=== PATIENT | male | born 1985 | race African-American/Black ===

== ENCOUNTER 2023-05-18 11:11 | Inpatient (IN) | payer OTHER ==
[2023-05-18 11:52] VITALS: BMI 18.4
[2023-05-18] MEDS ORDERED: BISMUTH SUBSALICYLATE 262 MG/15 ML BTL PO PRN (12:19)
[2023-05-18] MEDS ORDERED: guaiFENesin 600 MG TABLET.ER (FP) PO PRN (12:19)
[2023-05-18] MEDS ORDERED: ACETAMINOPHEN 325 MG TABLET (FP) PO PRN (12:19)
[2023-05-18] MEDS ORDERED: BENZOCAINE/MENTHOL (CHLORASEPTIC ) LOZENGE MM PRN (12:19)
[2023-05-18] MEDS ORDERED: MAGNESIUM HYDROX 2400MG/30ML ORAL SUSPENSION 30 ML CUP PO PRN (12:19)
[2023-05-18] MEDS ORDERED: MAG HYDROX/AL HYDROX/SIMETH 30 ML UNIT-DOSE CUP PO PRN (12:19)
[2023-05-18] MEDS ORDERED: METHOCARBAMOL 500 MG TABLET PO PRN (12:19)
[2023-05-18] MEDS ORDERED: POLYETHYLENE GLYCOL (HEALTHYLAX) 3350 17 GM PACKET PO PRN (12:19)
[2023-05-18] MEDS ORDERED: BENZONATATE 200 MG CAPSULE PO PRN (12:19)
[2023-05-18] MEDS ORDERED: ONDANSETRON *ODT* 4 MG TABLET SL PRN (12:19)
[2023-05-18] MEDS ORDERED: IBUPROFEN 600 MG TABLET (FP) PO PRN (12:19)
[2023-05-18] MEDS ORDERED: LOPERAMIDE HCL 2 MG CAPSULE PO PRN (12:19)
[2023-05-18] MEDS ORDERED: P-EPHED 60MG/TRIPROLIDI 2.5MG TABLET PO PRN (12:19)
[2023-05-18] MEDS ORDERED: DICYCLOMINE HCL 10 MG CAPSULE PO PRN (12:19)
[2023-05-18] MEDS ORDERED: IBUPROFEN 400 MG TABLET (FP) PO PRN (12:19)
[2023-05-18] MEDS ORDERED: diazePAM 5 MG TABLET PO PRN (12:21)
[2023-05-18] MEDS ORDERED: diazePAM 5 MG TABLET PO ONE (12:21)
[2023-05-18] MEDS ORDERED: diazePAM 5 MG TABLET ONE (12:46)
[2023-05-18] MEDS: diazePAM 5 MG TABLET PO SCH ×2 (17:17→22:25)
[2023-05-18] MEDS: MELATONIN 5 MG TABLETS PO SCH (22:25)
[2023-05-18] MEDS: THIAMINE HCL 100 MG TABLET (FP) PO SCH (22:25)
[2023-05-19] MEDS: diazePAM 5 MG TABLET PO SCH ×4 (05:23→22:19)
[2023-05-19] MEDS: PRENATAL VITAMINS W/ FOLIC ACID TABLET (FP) PO SCH (10:18)
[2023-05-19] MEDS: THIAMINE HCL 100 MG TABLET (FP) PO SCH (22:19)
[2023-05-19] MEDS: MELATONIN 5 MG TABLETS PO SCH (22:21)
[2023-05-20] MEDS: diazePAM 5 MG TABLET PO SCH ×2 (05:45→17:20)
[2023-05-20] MEDS: PRENATAL VITAMINS W/ FOLIC ACID TABLET (FP) PO SCH (10:11)
[2023-05-20 12:59] LABS: SYPHILIS W/ RPR CONF NON-REACTIVE (NONREACTIVE)
[2023-05-20 13:28] LABS: HIV INTERPRETATION NEGATIVE (NEGATIVE)
[2023-05-20 18:04] LABS: POTASSIUM 3.8 mmol/L (3.5-5.1)
[2023-05-20 18:06] LABS: BASO % 0.8 % (0-2.0); EOS % 3.2 % (0-4.5); HEMATOCRIT 43.3 % (35.4-49); HEMOGLOBIN 14.7 GM/dL (11.7-16.9); LYMPH % 25.6 % (8-40); MCH 33.3 pg (25.7-33.7); MCHC 34.1 g/dl (32.0-35.9); MEAN CELL VOLUME 97.8 fl (80-96); MEAN PLT VOLUME 8.7 fl (7.5-11.1); MONO % 6.6 % (3.8-10.2); NEUT % 63.8 % (42.8-82.8); PLATELET COUNT 171 10^3/uL (134-434); RBC 4.43 M/mm3 (4.00-5.60); RDW 13.1 % (11.9-15.9); WHITE BLOOD COUNT 3.9 K/mm3 (4.0-10.0)
[2023-05-20 18:07] LABS: BLOOD UREA NITROGEN 7.8 mg/dL (7-18)
[2023-05-20 18:08] LABS: ALBUMIN 3.9 g/dl (3.4-5.0); CALCIUM 9.1 mg/dL (8.5-10.1)
[2023-05-20 18:13] LABS: BILIRUBIN,TOTAL 0.4 mg/dL (0.2-1)
[2023-05-20 18:15] LABS: TOT PROT 7.1 g/dl (6.4-8.2)
[2023-05-20] MEDS: MELATONIN 5 MG TABLETS PO SCH (23:18)
[2023-05-20] MEDS: THIAMINE HCL 100 MG TABLET (FP) PO SCH (23:19)
[2023-05-21] MEDS ORDERED: diazePAM 5 MG TABLET PO ONE (06:00)
[2023-05-21 06:30] VITALS: RESP 16
[2023-05-21 08:53] VITALS: BP 132/77; PULSE 93; TEMP 98.2
[2023-05-21] MEDS: PRENATAL VITAMINS W/ FOLIC ACID TABLET (FP) PO SCH (10:10)
== END 2023-05-21 12:55 | disposition home or self-care (01) | DRG 897 ==
LOC: YASAS 11:11 → Y6N 12:50
PROVIDERS: ADMIT Allergy & Immunology; ATTEND Surgery
PROC: HZ2ZZZZ Detoxification Services for Substance Abuse Treatment (ICD-10-PCS; principal; 2023-05-18)
DX: F10.230 Alcohol dependence with withdrawal, uncomplicated (principal); F19.280 Other psychoactive substance dependence with psychoactive substance-induced anxiety disorder; F19.282 Other psychoactive substance dependence with psychoactive substance-induced sleep disorder; F13.10 Sedative, hypnotic or anxiolytic abuse, uncomplicated; F17.210 Nicotine dependence, cigarettes, uncomplicated; F41.9 Anxiety disorder, unspecified; R45.84 Anhedonia
CPT/HCPCS: 36415; 80053; 85025; 86780; 87389; 87635; 87811